=== PATIENT | male | born 1990 | race Caucasian/White ===

== ENCOUNTER 2017-09-07 06:20 | Emergency (ER) | payer MEDICAID ==
[2017-09-07 06:30] VITALS: RESP 16
--- NOTE | 2017-09-07 08:01 | ED PDOC ---
HPI: General Adult Time Seen by Provider: 09/07/17 07:00 Chief Complaint (Nursing): Medical Clearance Chief Complaint (Provider): Medical Clearance History Per: Patient History/Exam Limitations: no limitations Current Symptoms Are (Timing): Still Present Additional Complaint(s): 27 year old male presents to the emergency department under police custody for medical and psychiatric clearance. As per police, patient has no injuries. Patient denies pain. Past Medical History Reviewed: Historical Data, Nursing Documentation, Vital Signs Vital Signs: Last Vital Signs Temp 98.0 F 09/07/17 09:26 Pulse 75 09/07/17 09:26 Resp 16 09/07/17 09:26 BP 123/74 09/07/17 09:26 Pulse Ox 100 09/07/17 09:26 - Medical History PMH: No Chronic Diseases - Surgical History Surgical History: No Surg Hx - Family History Family History: States: Unknown Family Hx - Social History Current smoker - smoking cessation education provided: No Alcohol: Social Drugs: Denies - Allergies Allergies/Adverse Reactions: Allergies Allergy/AdvReac Type Severity Reaction Status Date / Time No Known Allergies Allergy Verified 09/07/17 06:30 Review of Systems ROS Statement: Except As Marked, All Systems Reviewed And Found Negative (As per HPI, otherwise negative) Physical Exam - Reviewed Nursing Documentation Reviewed: Yes Vital Signs Reviewed: Yes - Physical Exam Appears: Positive for: Well (No signs of trauma), Non-toxic, No Acute Distress Head Exam: Positive for: NORMAL INSPECTION Skin: Positive for: Normal Color, Warm, Dry Cardiovascular/Chest: Positive for: Regular Rate, Rhythm. Negative for: Murmur Respiratory: Positive for: Normal Breath Sounds. Negative for: Accessory Muscle Use, Respiratory Distress Gastrointestinal/Abdominal: Positive for: Normal Exam, Soft. Negative for: Tenderness Neurologic/Psych: Positive for: Alert (Awake and cooperative), Oriented. Negative for: Other (No psychosis) - ECG O2 Sat by Pulse Oximetry: 98 (RA) Pulse Ox Interpretation: Normal Medical Decision Making Medical Decision Making: Time: 0700 Initial Impression: Initial Plan: observe in ED, crisis eval 899 re-eval denies pain or any current symptoms cleared by crisis for DC to police vitals stable Scribe Attestation: Documented by Franchesca Vasques, acting as a scribe for Ramana Greer MD. Provider Scribe Attestation: All medical record entries made by the Scribe were at my direction and personally dictated by me. I have reviewed the chart and agree that the record accurately reflects my personal performance of the history, physical exam, medical decision making, and the department course for this patient. I have also personally directed, reviewed, and agree with the discharge instructions and disposition. Disposition - Clinical Impression Clinical Impression: Adjustment disorder - Patient ED Disposition Is Patient to be Admitted: No Counseled Patient/Family Regarding: Studies Performed, Diagnosis - Disposition Referrals: [facility] [Outside] Disposition: Discharged/Transfer to Law Enforcement Disposition Time: 09:10 Condition: STABLE Additional Instructions: Medically and psychiatrically stable for incarceration/police custody at this time. Instructions: Adjustment Disorder, General (DC) Forms: [employer] (Danish)
[2017-09-07 09:28] VITALS: BP 123/74; PULSE 75; TEMP 98
[2017-09-08 12:40] VITALS: O2SAT 98
== END 2017-09-07 09:27 | disposition home or self-care (01) ==
LOC: H.ER 06:20
DX: F43.20 Adjustment disorder, unspecified (principal); Z02.89 Encounter for other administrative examinations; Z00.8 Encounter for other general examination

== ENCOUNTER 2018-02-09 04:14 | Emergency (ER) | payer MEDICAID ==
[2018-02-09 04:22] VITALS: BMI 27.3
--- NOTE | 2018-02-09 04:35 | ED PDOC ---
HPI: Psych/Substance Abuse Time Seen by Provider: 02/09/18 04:16 Chief Complaint (Nursing): Medical Clearance Chief Complaint (Provider): Medical Clearance ED Caveat: Uncooperative History Per: Other ([employer]) History/Exam Limitations: intoxication Current Symptoms Are (Timing): Still Present Additional Complaint(s): 27 year old male arrives to ED under police custody for medical and psychiatric clearance for incarceration. Patient offers no medial complaints but is extremely agitated and uncooperative towards police and ED staff. According to police pilot, patient had allegedly expressed suicidal ideation while at [facility]. Past Medical History Reviewed: Unable To Obtain Vital Signs: Last Vital Signs Temp 97.9 F 02/09/18 04:15 Pulse 87 02/09/18 04:15 Resp 16 02/09/18 04:15 BP Pulse Ox 98 02/09/18 04:15 - Family History Family History: States: Unknown Family Hx - Allergies Allergies/Adverse Reactions: Allergies Allergy/AdvReac Type Severity Reaction Status Date / Time No Known Allergies Allergy Verified 02/09/18 04:19 Review of Systems Review Of Systems: ROS cannot be obtained secondary to pt's inabilty to answer questions. Physical Exam - Reviewed Nursing Documentation Reviewed: Yes Vital Signs Reviewed: Yes - Physical Exam Appears: Positive for: No Acute Distress Head Exam: Positive for: ATRAUMATIC, NORMAL INSPECTION, NORMOCEPHALIC Eye Exam: Positive for: Normal appearance, EOMI, PERRL Cardiovascular/Chest: Positive for: Regular Rate, Rhythm Respiratory: Positive for: Normal Breath Sounds. Negative for: Respiratory Distress Extremity: Positive for: Normal ROM (upper/lower) Neurologic/Psych: Positive for: Alert, Oriented. Negative for: Motor/Sensory Deficits - Laboratory Results Result Diagrams: 02/09/18 04:51 02/09/18 04:51 - ECG O2 Sat by Pulse Oximetry: 98 (RA) Pulse Ox Interpretation: Normal - Critical Care Total Time (In Min): 30 Documented Critical Care: Time excludes all time spent performint seperately billable procedures Medical Decision Making Medical Decision Making: Initial Impression: 27 year old male requiring medical and psychiatric clearance for [facility], possibly under drug or alcohol influence. Initial Plan: * Labs * Crisis eval Time: 421 --Patient continues to be uncooperative and verbally abuse towards police and staff. Ativan 2mg IM, Haldol 5mg IM, 1:1 OBS, and 4 points restraints additionally ordered for safety of patient and staff. Time: 0700 --Patient signed out to Dr. Peñaloza, pending clearance for incarceration. Scribe Attestation: Documented by Ava Chan, acting as a scribe for Fransico Reynolds MD. Provider Scribe Attestation: All medical record entries made by the Scribe were at my direction and personally dictated by me. I have reviewed the chart and agree that the record accurately reflects my personal performance of the history, physical exam, medical decision making, and the department course for this patient. I have also personally directed, reviewed, and agree with the discharge instructions and disposition. Disposition - Clinical Impression Clinical Impression: Alcohol intoxication - Disposition Disposition Time: 07:00 Condition: IMPROVED Additional Instructions: Patient is medically and psychiatrically cleared for incarceration. Instructions: Alcohol Abuse and Alcoholism (DC) Forms: [employer] (Bulgarian)
[2018-02-09 04:55] LABS: URINE BILIRUBIN NEGATIVE (NEGATIVE); URINE BLOOD NEGATIVE (NEGATIVE); URINE CLARITY CLEAR (Clear); URINE COLOR STRAW (YELLOW); URINE GLUCOSE (UA) NEG (Normal); URINE LEUKOCYTE ESTERASE NEG Leu/uL (Negative); URINE PROTEIN NEGATIVE (NEGATIVE); URINE UROBILINOGEN 0.2-1.0 mg/dL (0.2-1.0)
[2018-02-09 05:06] LABS: BASO # 0.1 K/uL (0.0-0.2); BASO % 0.9 % (0.0-2.0); EOS # 0.1 K/uL (0.0-0.7); EOS % 1.1 % (0.0-4.0); HEMOGLOBIN 14.9 g/dL (12.0-18.0); LYMPH % 33.6 % (20.0-40.0); MEAN CELL VOLUME 92.4 fl (80.0-94.0); MEAN CORPUSCULAR HEMOGLOBIN 31.1 pg (27.0-31.0); MEAN CORPUSCULAR HGB CONC 33.7 g/dL (33.0-37.0); MEAN PLATELET VOLUME 8.9 fl (7.2-11.7); MONO % 10.8 % (0.0-10.0); NEUT # 4.8 K/uL (1.8-7.0); NEUT % 53.6 % (50.0-75.0); NRBC % 0.2 % (0.0-0.0); RBC 4.78 Mil/uL (4.40-5.90); RED CELL DISTRIBUTION WIDTH 13.5 % (11.5-14.5); WHITE BLOOD COUNT 8.9 K/uL (4.8-10.8)
[2018-02-09 05:11] LABS: BARBITURATES, UR NEGATIVE (NEGATIVE); BENZODIAZEPINES, UR NEGATIVE (NEGATIVE); OPIATES, UR NEGATIVE (NEGATIVE); PHENCYCLIDINE, UR NEGATIVE (NEGATIVE)
[2018-02-09 05:15] LABS: ALB/GLOB RATIO 1.1 (1.0-2.1); ALBUMIN 4.6 g/dL (3.5-5.0); ALT/SGPT 26 U/L (21-72); AST/SGOT 56 U/L (17-59); BLOOD UREA NITROGEN 19 mg/dl (9-20); CALCIUM 8.8 mg/dL (8.4-10.2); GFR NON-AFRICAN AMERICAN > 60
--- NOTE | 2018-02-09 07:32 | ED PDOC ---
- Laboratory Results Result Diagrams: 02/09/18 04:51 02/09/18 04:51 - ECG O2 Sat by Pulse Oximetry: 98 (RA) Medical Decision Making Medical Decision Making: Received patient from Dr. Reynolds. Patient is incarcerated. He is pending medical and psych clearance when he awakes. 09:14 --Patient has been psychiatrically cleared by Dr. Shook. Scribe Attestation: Documented by Renée Coffman, acting as a scribe for Trang Peñaloza MD Provider Scribe Attestation: All medical record entries made by the Scribe were at my direction and personally dictated by me. I have reviewed the chart and agree that the record accurately reflects my personal performance of the history, physical exam, medical decision making, and the department course for this patient. I have also personally directed, reviewed, and agree with the discharge instructions and disposition. Disposition Counseled Patient/Family Regarding: Diagnosis - Clinical Impression Clinical Impression: Alcohol intoxication - POA Present On Arrival: None - Disposition Disposition: Discharged/Transfer to Law Enforcement Disposition Time: 09:40 Condition: IMPROVED Additional Instructions: Patient is medically and psychiatrically cleared for incarceration. Instructions: Alcohol Abuse and Alcoholism (DC) Forms: [employer] (Divehi)
[2018-02-09 09:41] VITALS: BP 124/83; PULSE 93; RESP 19; TEMP 98.1; O2SAT 98
== END 2018-02-09 09:58 | disposition home or self-care (01) ==
LOC: H.ER 04:14
DX: F10.129 Alcohol abuse with intoxication, unspecified (principal)
CPT/HCPCS: 80053; 80320; 80324; 80345; 80346; 80349; 80353; 80358; 80361; 81003; 82948; 83992; 85025; 96372; 99285; J1630; J2060